=== PATIENT | male | born 1945 | race Two or more races ===

== ENCOUNTER 2022-12-24 07:58 | Emergency (ER) | payer MEDICARE, MEDICAID ==
[~2022-12-24] VITALS: Ht 175.3 cm; Wt 80.0 kg
--- NOTE | 2022-12-24 09:19 | NUR ---
PT TAKEN TO CT.
[2022-12-24] MEDS ORDERED: iohexol 300mg/ml 100ml inj. ONE (09:25)
--- NOTE | 2022-12-24 10:04 | NUR ---
RN CALLED LAB TO INQUIRE IF THEY WILL COME COLLECT AND SHE WILL COME ONCE HER BREAK IS OVER.
[2022-12-24 10:35] LABS: RED BLOOD COUNT 5.31 X10'6 (4.70-6.10)
[2022-12-24 10:37] LABS: BASOPHILS % (AUTO) 0.5 % (0-1); EOSINOPHILS # (AUTO) 0.1 X10'3 (0-0.9); EOSINOPHILS % (AUTO) 1.3 % (0-6); HEMATOCRIT 47.5 % (42.0-52.0); HEMOGLOBIN 16.3 g/dl (14.0-17.9); LYMPHOCYTES # (AUTO) 2.1 X10'3 (1.1-4.8); LYMPHOCYTES % (AUTO) 25.1 % (21-51); MEAN CORPUSCULAR HEMOGLOBIN 30.7 PG (27.0-31.0); MEAN CORPUSCULAR HGB CONC 34.2 g/dL (33.0-36.5); MEAN CORPUSCULAR VOLUME 89.6 FL (78-98); MEAN PLATELET VOLUME 9.7 FL (7.4-10.4); MONOCYTES # (AUTO) 0.6 X10'3 (0-0.9); MONOCYTES % (AUTO) 6.8 % (2-12); NEUTROPHILS # (AUTO) 5.4 X10'3 (1.8-7.7); NEUTROPHILS % (AUTO) 66.3 % (42-75); PLATELET COUNT 172 X10'3 (140-440); RED CELL DISTRIBUTION WIDTH 13.7 % (11.5-14.5); WHITE BLOOD COUNT 8.2 X10'3 (4.5-11.0)
[2022-12-24 10:48] LABS: ACETONE NEGATIVE (NEGATIVE)
[2022-12-24 10:50] LABS: ALANINE AMINOTRANSFERASE 54 U/L (12-78); ALBUMIN 3.5 G/DL (3.4-5.0); ALBUMIN/GLOBULIN RATIO 0.9 (1.1-1.5); ALKALINE PHOSPHATASE 120 IU/L (46-116); ANION GAP 6 (8-16); ASPARTATE AMINO TRANSFERASE 21 U/L (10-37); BILIRUBIN,TOTAL 0.7 MG/DL (0.1-1.0); BLOOD UREA NITROGEN 15 MG/DL (7-18); BUN/CREATININE RATIO 15.5 (10.0-20.0); CALCIUM 9.3 MG/DL (8.5-10.1); CHLORIDE 102 MMOL/L (99-107); CREATININE 0.97 MG/DL (0.60-1.10); GLUCOSE 327 MG/DL (70-104); LIPASE 279 U/L (73-393); MAGNESIUM 1.9 MG/DL (1.5-2.4); POTASSIUM 4.1 MMOL/L (3.5-5.1); SODIUM 136 MMOL/L (135-145); TOTAL CARBON DIOXIDE 28.2 MMOL/L (24-32); TOTAL PROTEIN 7.4 G/DL (6.4-8.2); eCRCL 64 ML/MIN; eGFR 75 ML/MIN
[2022-12-24] MEDS ORDERED: MESSAGE TO NURSING PO SCH (11:15)
--- NOTE | 2022-12-24 11:37 | NUR ---
RN PROVIDED EDUCATION ABOUT DIABETIC MANAGEMENT/DIET/AND HOW TO OBTAIN GLUCOMETER/STRIPS/LANCETS, ALSO WHAT FOODS TO AVOID/NO METFORMIN FOR 48 HOURS TO PT AND PT SON. PT AND PT SON VERBALIZED UNDERSTANDING.
[2022-12-24 12:12] VITALS: BP 129/77; O2SAT 96
--- NOTE | 2022-12-24 12:12 | NUR ---
DR DE LA CRUZ AT PT BEDSIDE ANSWERING QUESTIONS FOR PT AND PT SON ANUP.
--- NOTE | 2022-12-24 12:47 | NUR ---
PER DR DE LA CRUZ MORE LABS FOR THYROID TO BE COLLECTED P/T DC. ALSO PER DR DE LA CRUZ NO NEED TO [facility] PT BG OR ADMIN MEDS P/T DC.
[2022-12-24 13:22] LABS: FREE T4 (FREE THYROXINE) 1.16 NG/DL (0.73-1.40); THYROID STIMULATING HORMONE 2.17 ulU/ml (0.34-4.50)
[2022-12-24] MEDS ORDERED: ONDA4TAB12 PO (13:28)
[2022-12-24] MEDS ORDERED: METF-436 PO (13:28)
[2022-12-24 13:40] VITALS: PULSE 87; RESP 16; TEMP 98.8
--- NOTE | 2022-12-24 13:42 | NUR ---
PT WAS DISCHARGED BY RN LPN LVN LOGAN IN STABLE CONDITION. IV WAS DISCONTINUED WITH TIP INTACT AND NO COMPLICATION. PT WILL BE TRANSPORTED HOME BY HIS SON. PT AND PT SON VERBALIZED UNDERSTANDING TO ALL DISCHARGE/RX INSTRUCTIONS PROVIDED.
== END 2022-12-24 13:44 | disposition home or self-care (01) ==
LOC: ER 07:58
DX: R11.2 Nausea with vomiting, unspecified (principal); E11.65 Type 2 diabetes mellitus with hyperglycemia; E11.9 Type 2 diabetes mellitus without complications; F12.90 Cannabis use, unspecified, uncomplicated; Z88.0 Allergy status to penicillin; Z79.899 Other long term (current) drug therapy
CPT/HCPCS: 36415; 71045; 74177; 80053; 82009; 82948; 83690; 83735; 84439; 84443; 85025; 93005; 99285; J3490; Q9967